=== PATIENT | male | born 1975 | race African-American/Black ===

== ENCOUNTER 2018-11-27 14:37 | Observation (INO) ==
[2018-11-27 16:40] LABS: Basophils % 0.4 % (0.0-0.8); Eosinophils # 0.1 10*3/uL (0.0-0.87); Eosinophils % 1.9 % (0.00-10.9); Hematocrit 46.6 VOL% (42.0-52.0); Hemoglobin 14.7 GM/DL (14.0-18.0); Immature Granulocytes % 0.4 %; Immature Granulocytes Absolute 0.02 #; Lymphocytes # 1.5 10*3/uL (1.4-4.0); Lymphocytes % 26.1 % (21.2-54.2); Mean Corpuscular HGB Conc 31.5 GM/DL (32-36); Mean Corpuscular Volume 89.1 FL (87-102); Mean Platelet Volume 10.3 FL (9.6-12.0); Monocytes % 12.8 % (1.7-12.7); Neutrophils % 58.4 % (38.7-73.9); Platelet Count 173 T/CUMM (130-400); Red Blood Count 5.23 MC/CUMM (3.8-5.5); Red Cell Distribution Width 15.1 % (9.3-17.3); White Blood Count 5.7 T/CUMM (4-12)
[2018-11-27 16:49] LABS: PT Patient Result 10.7 SECS
[2018-11-27 17:03] LABS: Alanine Aminotransferase 16 U/L (16-61); Albumin 3.1 G/DL (3.4-5.0); Alkaline Phosphatase 89 U/L (45-117); Aspartate Amino Transferase 10 U/L (0-37); Bilirubin,Total < 0.39 MG/DL (0.2-1.0); Blood Urea Nitrogen 17 MG/DL (7-18); Glucose 113 MG/DL (74-106); Osmolality,Calculated 277.7 MOS/KG (273-304); Total Protein 8.1 G/DL (6.4-8.3); Troponin I < 0.015 NG/ML (0.00-0.045)
[2018-11-27] MEDS ORDERED: ACETAMINOPHEN 325 MG TABLET PO PRN (18:09)
[2018-11-27] MEDS ORDERED: ONDANSETRON 4 MG/2 ML VIAL IV PRN (18:09)
[2018-11-27] MEDS ORDERED: GLUCAGON 1 MG VIAL IM PRN (18:11)
[2018-11-27] MEDS ORDERED: DEXTROSE 50% 25 GM/50 ML VIAL IV PRN (18:11)
[2018-11-27] MEDS ORDERED: POTASSIUM CHLORIDE 20 MEQ TABLET PO PRN (18:12)
[2018-11-27] MEDS ORDERED: POTASSIUM CHLORIDE 20 MEQ TABLET PO ONE (18:43)
[2018-11-27] MEDS ORDERED: hydrALAZINE 20 MG/1 ML VIAL IV PRN (18:59)
[2018-11-27] MEDS ORDERED: ENOXAPARIN 60 MG/0.6 ML SYRINGE SUBCUT SCH (21:00)
[2018-11-27] MEDS: LOSARTAN 50 MG TABLET PO SCH (22:06)
[2018-11-27] MEDS: CARVEDILOL 25 MG TABLET PO SCH (22:07)
[2018-11-27] MEDS: INSULIN LISPRO 100 UNIT/ML SUBCUT SCH (22:07)
[2018-11-28] MEDS ORDERED: PNEUMOCOCCAL VACCINE (23 VALENT) 0.5 ML VIAL IM ONE (00:21)
[2018-11-28 02:04] LABS: Basophils % 0.3 % (0.0-0.8); Eosinophils # 0.1 10*3/uL (0.0-0.87); Eosinophils % 2.1 % (0.00-10.9); Hematocrit 43.4 VOL% (42.0-52.0); Hemoglobin 13.9 GM/DL (14.0-18.0); Immature Granulocytes % 0.2 %; Immature Granulocytes Absolute 0.01 #; Lymphocytes # 1.7 10*3/uL (1.4-4.0); Mean Corpuscular Volume 88.6 FL (87-102); Mean Platelet Volume 10.7 FL (9.6-12.0); Neutrophils % 58.4 % (38.7-73.9); Platelet Count 171 T/CUMM (130-400); Red Cell Distribution Width 15.1 % (9.3-17.3); White Blood Count 6.2 T/CUMM (4-12)
[2018-11-28 02:24] LABS: Calcium 8.8 MG/DL (8.5-10.1); Osmolality,Calculated 275.8 MOS/KG (273-304); Risk Ratio 5.32; Thyroid Stimulating Hormone 2.15 uIU/ml (0.358-3.74); VLDL CHOLESTEROL 24.6 MG/DL
[2018-11-28 03:56] LABS: Apearance,Urine CLEAR (Clear); Bilirubin,Urine Negative (Negative); Blood, Urine Negative (Negative); Glucose,Urine (UA) Negative (Negative); Hyaline Casts,Urine 3 /LPF (0-3); Ketones,Urine Negative (Negative); Mucus,Urine Occasional /LPF (Occasional); Nitrite,Urine Negative (Negative); Protein,Urine 30 MG/DL; RBC,Urine 2 /HPF (0-4); Squamous Epithelial Cell,Urine Occasional /HPF (0-10); Urine Color Yellow (Yellow); Urine Specific Gravity 1.023 (1.001-1.035); Urine Urobilinogen < 2.0 EU/DL (0.2-1.0); WBC,Urine 3 /HPF (0-6)
[2018-11-28] MEDS: CARVEDILOL 25 MG TABLET PO SCH ×2 (08:55→16:12)
[2018-11-28] MEDS: PANTOPRAZOLE 40 MG TABLET PO SCH (08:55)
[2018-11-28] MEDS: LOSARTAN 50 MG TABLET PO SCH ×2 (08:55→20:53)
[2018-11-28] MEDS: POTASSIUM CHLORIDE 20 MEQ TABLET PO SCH ×2 (08:56→20:52)
[2018-11-28] MEDS: INSULIN LISPRO 100 UNIT/ML SUBCUT SCH ×4 (08:57→20:51)
[2018-11-28] MEDS ORDERED: sitaGLIPtin 100 MG TABLET PO SCH (09:00)
[2018-11-28] MEDS ORDERED: SIMVASTATIN 20 MG TABLET PO SCH (09:00)
[2018-11-28] MEDS: COLCHICINE 0.6 MG CAPSULE PO SCH (16:12)
[2018-11-28] MEDS: FUROSEMIDE 40 MG/4 ML VIAL IV SCH (16:12)
[2018-11-28] MEDS: ENOXAPARIN 40 MG/0.4 ML SYRINGE SUBCUT SCH (20:52)
[2018-11-28] MEDS ORDERED: ATORVASTATIN 40 MG TABLET PO SCH (21:00)
[2018-11-29 05:04] LABS: Basophils % 0.2 % (0.0-0.8); Eosinophils # 0.1 10*3/uL (0.0-0.87); Eosinophils % 1.7 % (0.00-10.9); Hematocrit 42.2 VOL% (42.0-52.0); Hemoglobin 13.2 GM/DL (14.0-18.0); Immature Granulocytes % 0.3 %; Immature Granulocytes Absolute 0.02 #; Lymphocytes # 1.4 10*3/uL (1.4-4.0); Lymphocytes % 23.9 % (21.2-54.2); Mean Corpuscular HGB Conc 31.3 GM/DL (32-36); Mean Corpuscular Volume 89.6 FL (87-102); Mean Platelet Volume 10.1 FL (9.6-12.0); Monocytes % 11.7 % (1.7-12.7); Neutrophils % 62.2 % (38.7-73.9); Platelet Count 151 T/CUMM (130-400); Red Blood Count 4.71 MC/CUMM (3.8-5.5); Red Cell Distribution Width 15.1 % (9.3-17.3); White Blood Count 5.9 T/CUMM (4-12)
[2018-11-29 05:27] LABS: Calcium 8.6 MG/DL (8.5-10.1); Osmolality,Calculated 281.4 MOS/KG (273-304)
[2018-11-29] MEDS: INSULIN LISPRO 100 UNIT/ML SUBCUT SCH (09:21)
[2018-11-29] MEDS: ENOXAPARIN 40 MG/0.4 ML SYRINGE SUBCUT SCH (09:22)
[2018-11-29] MEDS: FUROSEMIDE 40 MG/4 ML VIAL IV SCH (09:22)
[2018-11-29] MEDS: CARVEDILOL 25 MG TABLET PO SCH (09:23)
[2018-11-29] MEDS: POTASSIUM CHLORIDE 20 MEQ TABLET PO SCH (09:23)
[2018-11-29] MEDS: COLCHICINE 0.6 MG CAPSULE PO SCH (09:23)
[2018-11-29] MEDS: LOSARTAN 50 MG TABLET PO SCH (09:23)
[2018-11-29] MEDS: PANTOPRAZOLE 40 MG TABLET PO SCH (09:23)
[2018-11-29 12:05] VITALS: BP 122/67
== END 2018-11-29 15:40 | disposition home or self-care (01) ==
LOC: N.ED 14:37 → N.TELEN 18:35 → N.EDINP 18:35 → INTOOBSV 18:35 → N.TELEN 19:34
PROVIDERS: ADMIT Internal Medicine; ATTEND Internal Medicine